=== PATIENT | male | born 1950 | race Caucasian/White ===

== ENCOUNTER 2020-06-21 18:34 | Observation (INO) | payer MEDICARE ==
[~2020-06-21] VITALS: Ht 182.9 cm; Wt 102.1 kg
[2020-06-21] MEDS ORDERED: ATOR20 PO (19:21)
[2020-06-21] MEDS ORDERED: PARO20 PO (19:22)
[2020-06-21 21:05] LABS: Calcium, Ionized (POC) 1.19 mmol/L (1.10-1.46); Chloride (POC) 106 mmol/L (98-108); Creatinine (POC) 0.8 mg/dL (0.8-1.3); Glucose (ISTAT POC) 100 mg/dL (70-99); Hemoglobin (POC) 13.6 g/dL (13.5-17.5); Potassium (POC) 3.8 mmol/L (3.5-5.5); Sodium (POC) 140 mmol/L (135-148); Total CO2 (POC) 20 mmol/L (21-32)
[2020-06-21 21:11] LABS: BASOPHILS ABSOLUTE AUTO 0.05 K/mm3 (0.00-0.23); BASOPHILS PERCENT AUTO 0 % (0-2); EOSINOPHILS ABSOLUTE AUTO 0.22 K/mm3 (0.00-0.68); EOSINOPHILS PERCENT AUTO 2 % (0-6); Hematocrit 40.3 % (37.0-53.0); Hemoglobin 13.6 g/dL (13.5-17.5); IMMATURE GRAN ABSOLUTE AUTO 0.12 K/mm3 (0.00-0.10); IMMATURE GRAN PERCENT AUTO 1 % (0-1); LYMPHOCYTES ABSOLUTE AUTO 1.69 K/mm3 (0.84-5.20); LYMPHOCYTES PERCENT AUTO 12 % (21-46); MONOCYTES ABSOLUTE AUTO 1.04 K/mm3 (0.16-1.47); MONOCYTES PERCENT AUTO 7 % (4-13); Mean Corpuscular HGB 31.6 pg (26.0-34.0); Mean Corpuscular HGB Conc 33.7 g/dL (31.5-36.5); Mean Corpuscular Volume 94 fL (80-100); Mean Platelet Volume 9.1 fL (9.1-12.4); NEUTROPHILS PERCENT AUTO 79 % (41-73); Platelet Count 185 K/mm3 (150-400); RDW Coefficient Variation 12.4 % (11.7-14.2); White Blood Cell Count 14.62 K/mm3 (4.00-11.30)
[2020-06-21 21:51] LABS: Alanine Aminotransfer (ALT/SGP 179 U/L (12-78); Albumin, Blood 3.9 g/dL (3.4-5.0); Albumin/Globulin Ratio 1.3 (0.8-1.8); Alk Phos 44 U/L (50-136); Anion Gap 11 mmol/L (6-16); Aspartate Aminotrans (AST/SGOT 180 U/L (12-37); Bilirubin, Total 0.3 mg/dL (0.1-1.0); Blood Urea Nitrogen 22 mg/dL (8-24); Bun/Creatinine Ratio 28.6 (12.0-20.0); CO2, Blood 21 mmol/L (21-32); Calcium, Blood 9.1 mg/dL (8.5-10.1); Chloride, Blood 111 mmol/L (98-108); Creatinine, Blood 0.77 mg/dL (0.60-1.20); Globulin, Blood 3.1 g/dL (2.2-4.0); Glomerular Filtration Rate >60 (60-); Glucose, Blood 100 mg/dL (70-99); Sodium, Blood 143 mmol/L (136-145)
[2020-06-21] MEDS ORDERED: Clomipramine HC50 MG PO (23:50)
[2020-06-22 04:16] LABS: Hematocrit 39.6 % (37.0-53.0); Hemoglobin 13.5 g/dL (13.5-17.5); Mean Corpuscular HGB 32.4 pg (26.0-34.0); Mean Corpuscular HGB Conc 34.1 g/dL (31.5-36.5); Mean Corpuscular Volume 95 fL (80-100); Mean Platelet Volume 9.1 fL (9.1-12.4); Platelet Count 182 K/mm3 (150-400); RDW Coefficient Variation 12.8 % (11.7-14.2); RDW Standard Deviation 44.4 fL (35.1-46.3); Red Blood Cell Count 4.17 M/mm3 (4.30-5.90); White Blood Cell Count 10.86 K/mm3 (4.00-11.30)
[2020-06-22 04:36] LABS: Anion Gap 6 mmol/L (6-16); Blood Urea Nitrogen 19 mg/dL (8-24); Bun/Creatinine Ratio 25.9 (12.0-20.0); CO2, Blood 25 mmol/L (21-32); Calcium, Blood 8.7 mg/dL (8.5-10.1); Chloride, Blood 109 mmol/L (98-108); Creatinine, Blood 0.74 mg/dL (0.60-1.20); Glomerular Filtration Rate >60 (60-); Glucose, Blood 110 mg/dL (70-99); Magnesium, Blood 2.4 mg/dL (1.6-2.4); Potassium, Blood 4.1 mmol/L (3.5-5.5); Sodium, Blood 140 mmol/L (136-145)
--- NOTE | 2020-06-22 05:06 | NUR ---
SHIFT SUMMARY NEW ADMIT THIS SHIFT. 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 NPO THIS AM. PAIN WITH DEEP INSPIRATION, DECREASED WITH 5 ROXICODONE Q4H + DILAUDID 0.5 X2 FOR BREAKTHROUGH. NO NAUSEA/EMESIS. LUNG SOUNDS CLEAR, DIMINISHED IN BASES BILATERALLY. SHALLOW BREATHS NOTED, ENCOURAGED DEEP BREATHS TOLERATED + IS USE. BRUISING NOTED TO RIGHT POSTERIOR CHEST/SCAPULA, LIDOCAINE PATCHES X2 APPLIED AT 0030 THIS AM. IVF PER ORDERS + GOOD URINE OUTPUT. PT MOVES WELL IN BED + UP IN ROOM SBA. PT WITH MINIMAL REST THIS SHIFT. ORIENTED TO ROOM + CALL LIGHT USE. AWAITING X-RAY RESULTS FROM THIS AM.
[2020-06-22] MEDS ORDERED: ACET325 PO (13:10)
[2020-06-22] MEDS ORDERED: IBUP600 PO (13:11)
[2020-06-22] MEDS ORDERED: DOCU100 PO (13:11)
[2020-06-22] MEDS ORDERED: LIDO700A20 TOP (13:12)
[2020-06-22] MEDS ORDERED: OXAYDO5 MG PO (13:12)
--- NOTE | 2020-06-22 13:41 | NUR ---
DISCHARGE PT DISCHARGED HOME AT APROX 1340. PT GIVEN WRITTEN AND VERBAL DISCHARGE INSTRUCTIONS AND VERBALIZED UNDERSTANDING. PT GIVEN WRITTEN RX FOR PAIN MEDICATION, COPY ON FRONT OF CHART. IV REMOVE, PT TOLERATED WELL. WHEELCHAIR TO CAR
== END 2020-06-22 13:40 | disposition home or self-care (01) ==
LOC: ER 18:34 → SURS 18:35
PROVIDERS: Emergency Medicine; ADMIT Surgery
DX: S22.41XA Multiple fractures of ribs, right side, initial encounter for closed fracture (principal); S36.892A Contusion of other intra-abdominal organs, initial encounter; S30.1XXA Contusion of abdominal wall, initial encounter; S30.0XXA Contusion of lower back and pelvis, initial encounter; S61.012A Laceration without foreign body of left thumb without damage to nail, initial encounter; J93.9 Pneumothorax, unspecified; M19.90 Unspecified osteoarthritis, unspecified site; F32.9 Major depressive disorder, single episode, unspecified; E78.5 Hyperlipidemia, unspecified; Z96.653 Presence of artificial knee joint, bilateral; Z79.899 Other long term (current) drug therapy; Z23 Encounter for immunization; W13.2XXA Fall from, out of or through roof, initial encounter
CPT/HCPCS: 36415; 71045; 71101; 71260; 73030; 74177; 80047; 80048; 80053; 83735; 85014; 85025; 85027; 90471; 90714; 96361; 96374; 96375; 96376; 97110; 97162; 99285-25; A9270; A9270-GY; G0008; G0378; J1170; J1885; J2270; J2405; J7120; Q2038; Q9967